=== PATIENT | male | born 1970 | race Caucasian/White ===

== ENCOUNTER → 2021-06-24 15:10 | Outpatient (CLI) | payer BC, SELFPAY ==
--- NOTE | 2021-06-24 | DI.RAD.S_ITS ---
PROCEDURE: XR KNEE LT 3V INDICATIONS: CHRONIC LEFT KNEE PAIN TECHNIQUE: 3 views of the knee were acquired. COMPARISON: None. FINDINGS: Bones: No fractures or dislocations. 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 No suspicious bony lesions. Soft tissues: No joint effusion. No suspicious soft tissue calcifications. IMPRESSION: No acute left knee fracture or dislocation. 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 Dictated by: Collin Degroot M.D. on 06/24/2021 at 17:05 Approved by: Collin Degroot M.D. on 06/24/2021 at 17:05
== END ==
PROVIDERS: PCP Internal Medicine; Referring Provider Internal Medicine; Visit Provider Internal Medicine
DX: M25.562 Pain in left knee (principal); G89.29 Other chronic pain; M17.12 Unilateral primary osteoarthritis, left knee
CPT/HCPCS: 73562